=== PATIENT | male | born 1955 | race Asian ===

== ENCOUNTER 2018-12-01 21:02 | Emergency (ER) | payer SELFPAY ==
[~2018-12-01] VITALS: Wt 53.5 kg
[~2018-12-01 21:02] MED LIST: AMLO2.5T78 PO; ASPI-817 PO; HYDR25SU23 PR; LOSA100T15 PO
[2018-12-01 21:07] VITALS: BP 150/82; PULSE 72; RESP 18
== END 2018-12-02 02:37 | disposition left against medical advice (07) ==
LOC: FTE 21:02
DX: Z53.21 Procedure and treatment not carried out due to patient leaving prior to being seen by health care provider (principal)